=== PATIENT | male | born 1960 | race Caucasian/White ===

== ENCOUNTER 2018-10-01 10:42 | Emergency (ER) | payer MEDICARE, MEDICAID, SELFPAY ==
[2018-10-01 10:45] VITALS: BP 164/84; PULSE 91; RESP 20; TEMP 36.8; O2SAT 98
--- NOTE | 2018-10-01 10:52 | W.ED.GENAD ---
Discharge Plan Disposition Patient Disposition: HOME Condition: Good Discharge Details Chief Complaint: ThroatFB Clinical Impression: Mass of palate Primary Care Provider: None,None ED Provider: Surinder Borjas [facility] Prescriptions: Continued cyclobenzaprine 10 mg Tablet 10 mg PO DAILY RF: 0 tizanidine 4 mg Tablet 4 mg PO HS RF: 0 gabapentin 300 mg Capsule 600 mg PO BID RF: 0 omeprazole 20 mg Capsule,Delayed Release(Dr/Ec) 20 mg PO DAILY RF: 0 Discharge Instructions Additional Instructions: You will need to have this evaluated by ENT or by oral surgery. As you have a relationship with ENT, I would contact him first. Return to ED for inability to swallow, difficulty breathing, bleeding, other concerns. Referrals: Care Management [Provider Group] Naseem Higginbotham [ [facility] STAFF PHYSICIAN] - Medical Decision Making Patient needs referral to ENT or oral surgery for evaluation and at least biopsy if not removal of growth. Patient reports having a relationship with ENT in [place]. He will contact him for an appointment. Will have care management work with him in terms of establishing primary care here. Return to ED for inability to swallow, trouble breathing, bleeding. HPI General Mode of arrival: ambulatory. Date/Time Provider Initiated Documentation: 10/01/18 10:43. Limitations to Documentation: no limitations. Information obtained by: patient. HPI Narrative: Patient presents for evaluation of a growth on his upper palate. This has been there for over a month and is getting larger and is now painful at times. There has been no bleeding. He has no difficulty breathing or swallowing. He is new to this area in the last year or so and has not established primary care. He decided to come here. There is no acute changes. Related Data Home Medications Medication Instructions Recorded Confirmed cyclobenzaprine 10 mg PO DAILY 10/01/18 10/01/18 gabapentin 600 mg PO BID 10/01/18 10/01/18 omeprazole 20 mg PO DAILY 10/01/18 10/01/18 tizanidine 4 mg PO HS 10/01/18 10/01/18 Allergies Allergy/AdvReac Type Severity Reaction Status Date / Time No Known Allergies Allergy Unverified 10/01/18 10:48 General Stated Complaint: ThroatFB ARNALDO: 3 Review of Systems Constitutional Denies fever(s) ENT Denies facial pain, Reports mouth pain, Denies neck mass, Denies neck pain and Denies throat swelling Cardiovascular Denies dyspnea Respiratory Denies dyspnea Musculoskeletal Denies neck pain Allergic/Immunologic Denies throat swelling PFSH Medical History Hypertension (Chronic) Surgical History S/P partial thyroidectomy (Chronic) History of hernia repair (Inactive) Social History Smoking/Tobacco Use Status: Current every day Tobacco Type: cigars Alcohol Intake: former Substance use type: marijuana Do you feel safe at home: Yes Do you feel safe in your relationship?: Yes Exam Const General: cooperative, comfortable and no acute distress Orientation: alert and oriented x3 HENMT Head: normocephalic and atraumatic Face and sinus: normal facial exam Mouth: lip normal, tongue normal and other (0.5 cm soft tissue mass left hard/soft palate junction) Throat: posterior oropharynx normal and tonsils normal Course Vital Signs Temperature 98.2 F 10/01/18 10:45 Pulse 91 H 10/01/18 10:45 Respiratory Rate 20 10/01/18 10:45 Blood Pressure 164/84 H 10/01/18 10:45 Pulse Oximetry 98 10/01/18 10:45 Temperature 98.2 F 10/01/18 10:45 Temperature Source Temporal Artery Scan 10/01/18 10:45 Pulse 91 H 10/01/18 10:45 Respiratory Rate 20 10/01/18 10:45 Respiratory Effort Non-Labored 10/01/18 10:50 Respiratory Pattern Normal 10/01/18 10:50 Blood Pressure 164/84 H 10/01/18 10:45 Pulse Oximetry 98 10/01/18 10:45 Oxygen Delivery Method Room Air 10/01/18 10:45 Oxygen Flow Rate 0 10/01/18 10:45 Pain Level 7 10/01/18 10:45
[2018-10-01 15:53] VITALS: BP 164/84; PULSE 91; RESP 20; TEMP 36.8; O2SAT 98
--- NOTE | 2018-10-02 08:36 | CMPROGNOTE_ITS ---
Care Management Progress Note 10/02-Discussion for Rocky to establish a PCP. Rocky is already established with Jac Reyes at [facility]. This CM has reached out to Rocky and he has contact information if further assistance is needed.
== END 2018-10-01 11:24 | disposition home or self-care (01) ==
LOC: ER 11:32
PROVIDERS: Emergency Provider Emergency Medicine; PCP Internal Medicine
DX: R19.06 Epigastric swelling, mass or lump (principal); I10 Essential (primary) hypertension
CPT/HCPCS: 99282

== ENCOUNTER 2019-01-05 09:15 | Outpatient (REF) | payer MEDICARE, MEDICAID, SELFPAY ==
[2019-01-05 21:32] LABS: Abs Immature Grans 0.01 k/cumm (0.0-0.09); Absolute Basophil Count 0.02 k/cumm (0.0-0.2); Absolute Eosinophil Count 0.25 k/cumm (0.0-0.7); Absolute Lymphocyte Count 1.82 k/cumm (1.2-3.4); Absolute Monocyte Count 0.49 k/cumm (0.11-0.7); Absolute Neutrophil Count 5.08 k/cumm (1.2-6.7); Basophils % 0.3; Eosinophils % 3.3; HCT 44.1 % (40.0-50.0); HGB 14.7 g/dL (13.5-17.5); Immature Grans % 0.1; Lymphocytes % 23.7; Mean Corp. HGB Concentration 33.3 g/dL (32.0-36.0); Mean Corpuscular Hemoglobin 31.1 pg (27.0-33.0); Mean Corpuscular Volume 93.2 fL (80-95); Mean Platelet Volume 10.1 fL (8.0-11.0); Monocytes % 6.4; Neutrophils % 66.2; Platelet Count 268 x1000/uL (130-400); RBC 4.73 m/cumm (4.50-6.00); RBC Distribution Width 13.9 % (11.8-14.1); White Blood Cell Count 7.67 k/cumm (4.4-10.8)
[2019-01-05 23:57] LABS: ALT 20 U/L (12-78); AST 21 U/L (15-37); Alkaline Phosphatase 105 U/L (46-116); Anion Gap 9.7 mmol/L (3-11); BUN 9 mg/dL (7-18); Bilirubin, Total 0.4 mg/dL (0.2-1.0); CO2 28.3 mmol/L (21.0-32.0); CREATININE 0.96 mg/dL (0.70-1.30); Calcium 9.4 mg/dL (8.5-10.1); Calculated LDL 191 mg/dL; Chloride 106 mmol/L (98-107); Cholesterol 268 mg/dL (50-200); Glucose 87 mg/dL (70-100); HDL Cholesterol 43 mg/dL (40-60); Potassium 4.7 mmol/L (3.5-5.1); Sodium 144 mmol/L (136-145); TSH (W/Ref FT4) 1.91 uIU/mL (0.358-3.74); Total Protein 7.1 g/dL (6.4-8.2); Triglyceride 174 mg/dL (30-150)
[2019-01-08 06:50] LABS: Vitamin D 25 Total 28.7 ng/ml (30-100)
== END 2019-01-05 09:35 ==
LOC: NCHCN 09:15
PROVIDERS: PCP Internal Medicine; Visit Provider Family Medicine
DX: E55.9 Vitamin D deficiency, unspecified (principal); I10 Essential (primary) hypertension; E89.0 Postprocedural hypothyroidism; Z13.6 Encounter for screening for cardiovascular disorders
CPT/HCPCS: 80053; 80061; 82306; 83721; 84443; 85025

== ENCOUNTER 2019-03-11 09:21 | Outpatient (REF) | payer MEDICARE, MEDICAID, SELFPAY ==
[2019-03-11 22:46] LABS: ALT 23 U/L (16-63); AST 18 U/L (15-37); Albumin 3.7 g/dL (3.4-5.0); Alkaline Phosphatase 91 U/L (46-116); Anion Gap 10.9 mmol/L (3-11); BUN 14 mg/dL (7-18); Bilirubin, Direct 0.07 mg/dL (0.00-0.20); Bilirubin, Total 0.4 mg/dL (0.2-1.0); CO2 26.1 mmol/L (21.0-32.0); CREATININE 1.06 mg/dL (0.70-1.30); Chloride 105 mmol/L (98-107); Glucose 109 mg/dL (70-100); Potassium 4.3 mmol/L (3.5-5.1); Sodium 142 mmol/L (136-145); Total Protein 6.7 g/dL (6.4-8.2)
[2019-03-11 22:58] LABS: Calculated LDL 85 mg/dL; Cholesterol 150 mg/dL (50-200); HDL Cholesterol 52 mg/dL (40-60); Triglyceride 67 mg/dL (30-150)
[2019-03-12 05:03] LABS: Vitamin D 25 Total 35.4 ng/ml (30-100)
== END 2019-03-11 09:41 ==
LOC: NCHCN 09:21
PROVIDERS: PCP Internal Medicine; Visit Provider Family Medicine
DX: E83.51 Hypocalcemia (principal); I10 Essential (primary) hypertension; E78.70 Disorder of bile acid and cholesterol metabolism, unspecified; E55.9 Vitamin D deficiency, unspecified; L56.8 Other specified acute skin changes due to ultraviolet radiation; Z72.0 Tobacco use
CPT/HCPCS: 80048; 80061; 80076; 82306

== ENCOUNTER 2020-02-16 14:58 | Outpatient (REF) | payer MEDICARE, MEDICAID, SELFPAY ==
[2020-02-16 21:28] LABS: ALT 20 U/L (16-63); AST 11 U/L (15-37); Alkaline Phosphatase 84 U/L (46-116); BUN 11 mg/dL (7-18); Bilirubin, Total 0.4 mg/dL (0.2-1.0); CREATININE 1.03 mg/dL (0.70-1.30); Calcium 9.4 mg/dL (8.5-10.1); Calculated LDL 75 mg/dL (<100); Chloride 106 mmol/L (98-107); Cholesterol 151 mg/dL (<200); Glucose 104 mg/dL (74-106); HDL Cholesterol 59 mg/dL (40-60); Potassium 4.1 mmol/L (3.5-5.1); Sodium 139 mmol/L (136-145); TSH (W/Ref FT4) 1.02 uIU/mL (0.36-3.74); Total Protein 6.9 g/dL (6.4-8.2); Triglyceride 85 mg/dL (<150)
== END 2020-02-16 15:18 ==
LOC: NCHCN 14:58
PROVIDERS: PCP Internal Medicine; Visit Provider Family Medicine
DX: I10 Essential (primary) hypertension (principal); E55.9 Vitamin D deficiency, unspecified; E78.70 Disorder of bile acid and cholesterol metabolism, unspecified; Z72.0 Tobacco use
CPT/HCPCS: 80053; 80061; 82306; 84443

== ENCOUNTER 2020-05-18 00:21 | Outpatient (CLI) | payer MEDICARE, MEDICAID, SELFPAY ==
--- NOTE | 2020-05-18 09:18 | DI.CTLCSR_ITS ---
EXAM: CT CHEST LUNG CANCER SCREEN CLINICAL HISTORY: SCREENING FOR LUNG CA,CURRENT SMOKER, F17.210 TECHNIQUE: CT examination of the chest was performed utilizing low-dose lung cancer screening protoc ol. COMPARISON: No exams were available for comparison FINDINGS: Images obtained through the upper abdomen show unremarkable appearance of visualized portions of the liver and spleen. There is no mediastinal or hilar adenopathy. Mediastinal vascular structures appear intact by noncon trast criteria. Tracheobronchial tree appears intact. No pleural effusion or pleural-based mass. There is moderate central emphysema. There is tiny calcified left lower lobe intrapulmonary nodule. There is a 2 millimeter in right upper lobe noncalcified nodule seen posteriorly. No additional nod ule seen. No consolidation seen. IMPRESSION: Moderate centrilobular pulmonary emphysema noted. Tiny calcified and non calcified pulmonary nodules noted. Lung RADS Cat 2 - Benign Appearance / Behavior: Nodules with a very low likelihood of becoming a clin ically active cancer due to size or lack of growth Continue annual screening with LD CT in 12 months. RADIATION DOSE DELIVERED: LINK-TO-SR Total DLP 98.82mGy.cm Total DLP
== END 2020-05-18 00:41 ==
PROVIDERS: PCP Family Medicine; Visit Provider Family Medicine
DX: F17.210 Nicotine dependence, cigarettes, uncomplicated (principal); J43.2 Centrilobular emphysema; R91.8 Other nonspecific abnormal finding of lung field
CPT/HCPCS: G0297

== ENCOUNTER 2020-06-27 11:32 | Emergency (ER) | payer MEDICARE, MEDICAID, SELFPAY ==
[2020-06-27 11:42] VITALS: BP 154/77; PULSE 80; RESP 16; TEMP 36.7
--- NOTE | 2020-06-27 12:01 | W.ED.GENAD ---
Discharge Plan Disposition Patient Disposition: HOME Condition: Stable Discharge Details Clinical Impression: Abscess of back Primary Care Provider: Fracisco Blanton ED Provider: Yulisa Huber Home Meds and New Rx's Prescriptions: New clindamycin HCl 150 mg capsule 450 mg PO TID 7 Days Qty: 63 RF: 0 Continued atorvastatin 40 mg tablet 40 mg PO DAILY RF: 0 albuterol sulfate [Ventolin HFA] 90 mcg/actuation HFA aerosol inhaler 2 inh INHALATION Q4H PRN PRNRF: 0 cholecalciferol (vitamin D3) [Vitamin D3] 10 mcg (400 unit) tablet 800 unit PO HS RF: 0 hydrochlorothiazide 12.5 mg tablet 12.5 mg PO DAILY RF: 0 tizanidine 4 mg Tablet 4 mg PO HS RF: 0 gabapentin 300 mg Capsule 600 mg PO BID RF: 0 omeprazole 20 mg Capsule,Delayed Release(Dr/Ec) 20 mg PO DAILY RF: 0 Discharge Instructions Instructions: Abscess (ED) Additional Instructions: Take the antibiotics until finished. Alternate tylenol and motrin as needed and directed for pain. Keep wound clean and dry. Recover wound if dressing becomes wet or dirty. Do not remove packing within the wound. Return to the emergency department in 2 days for packing removal. Discharge Data Discharge Date/Time-TO BE ENTERED AT DEPARTURE: 06/27/20 13:22 Discharge Physician: Yulisa Huber Medical Decision Making 60-year-old male with a previous history of abscesses to his back presents for back abscess that started 1 month ago, now draining for the past 5 days. He has a 1.5 x 1.5 cm minimally fluctuant abscess noted just left of midline lower thoracic spine. Very minimal erythema but no red streaking. He appears nontoxic. Bedside ultrasound confirmed fluid collection. Area was cleaned with Betadine and anesthetized with lidocaine with epinephrine. Area incised with #11 blade and purulent drainage and cheeselike drainage expressed. Wound was irrigated and quarter inch iodoform packing placed. Patient was given a dose of clindamycin here as well as prescription to go. Advised to return to the ED in 2 days for packing removal and wound check. Medical Records Medical records reviewed: Yes I reviewed the patient's medical records. HPI General Mode of arrival: ambulatory. Date/Time Provider Initiated Documentation: 06/27/20 12:00. Limitations to Documentation: no limitations. Information obtained by: patient. HPI Narrative: Patient is a 60-year-old male who presents with a complaint of an abscess to his back for the last month, draining over the past 5 days with some improvement since then. Patient denies any fever. He states it opened a few days ago and has been draining white and bloody drainage. He states he has had an abscess in this area previously which has been treated with drainage and antibiotics. Related Data Home Medications Medication Instructions Recorded Confirmed gabapentin 600 mg PO BID 10/01/18 06/27/20 omeprazole 20 mg PO DAILY 10/01/18 06/27/20 tizanidine 4 mg PO HS 10/01/18 06/27/20 albuterol sulfate [Ventolin HFA] 2 inh INHALATION Q4H PRN PRN 06/27/20 06/27/20 atorvastatin 40 mg PO DAILY 06/27/20 06/27/20 cholecalciferol (vitamin D3) 800 unit PO HS 06/27/20 06/27/20 [Vitamin D3] clindamycin HCl 450 mg PO TID 7 Days #63 cap 06/27/20 hydrochlorothiazide 12.5 mg PO DAILY 06/27/20 06/27/20 Previous Rx's Medication Instructions Recorded clindamycin HCl 450 mg PO TID 7 Days #63 cap 06/27/20 Allergies Allergy/AdvReac Type Severity Reaction Status Date / Time No Known Allergies Allergy Unverified 06/27/20 11:50 General Stated Complaint: Cellulitis ARNALDO: 4 Review of Systems All systems reviewed & are unremarkable except as noted in HPI and below Constitutional Constitutional: Reports as per HPI, Denies chills and Denies fever(s) Eyes Eyes: Denies blurry vision ENT Ears, Nose, Mouth, and Throat: Denies dizziness, Denies sore throat and Denies throat swelling Cardiovascular Cardiovascular: Denies chest pain and Denies dyspnea Respiratory Respiratory: Denies cough and Denies dyspnea Gastrointestinal Gastrointestinal: Denies abdominal pain, Denies diarrhea and Denies vomiting Genitourinary Genitourinary: Denies hematuria and Denies dysuria Musculoskeletal Musculoskeletal: Denies back pain and Denies numbness Integumentary/Breasts Skin/Breast: Reports lesions and Denies rash Neurologic Neurologic: Denies dizziness, Denies localized weakness and Denies numbness Allergic/Immunologic Allergic/Immunologic: Denies throat swelling [facility] Medical History (Updated 06/27/20 @ 13:17 by Yulisa Huber DO) Hypertension Surgical History History of hernia repair S/P partial thyroidectomy Social History Smoking/Tobacco Use Status: Former Tobacco Use Smoking risk assessment performed?: Yes Alcohol Intake: former Drug use: Daily Substance use type: marijuana Do you feel safe at home: Yes Do you feel safe in your relationship?: Yes Exam Const General: cooperative, healthy appearing and no acute distress HENMT Head: normal to inspection Mouth: oral mucosae normal Eyes General: appearance normal, both eyes and all related structures Neck Neck: normal visual inspection Resp Effort & Inspection: normal respiratory effort and able to speak in complete sentences Cardio Rate: regular rate Back/Spine/Pelvis Back/spine/pelvis image: 1. 1.5 x 1.5 cm faintly erythematous and minimally raised abscess without significant fluctuance or induration. No red streaking. There is a crusted papule at 11:00 likely consistent with opening of abscess. Skin General skin exam: no rashes or lesions noted Neuro General: patient alert, patient awake and patient oriented x3 Motor: muscle tone normal throughout Extrem General: normal to inspection and full ROM Psych Appearance: grossly normal Affect: normal affect Course Vital Signs Vital signs: Vital Signs Temperature 98.1 F 06/27/20 11:42 Pulse 80 06/27/20 11:42 Respiratory Rate 16 06/27/20 11:42 Blood Pressure 154/77 H 06/27/20 11:42 Temperature 98.1 F 06/27/20 11:42 Temperature Source Temporal Artery Scan 06/27/20 11:42 Pulse 80 06/27/20 11:42 Respiratory Rate 16 06/27/20 11:42 Respiratory Effort Non-Labored 06/27/20 11:48 Blood Pressure 154/77 H 06/27/20 11:42 Blood Pressure Position Sitting 06/27/20 11:42 Oxygen Delivery Method Room Air 06/27/20 11:42 Oxygen Flow Rate 0 06/27/20 11:42 Pain Level 3 06/27/20 11:42 Procedures Abscess I/D Site: Back Side (if applicable): Left Local Anesthetic: Lidocaine 1% and With Epi Amount of anesthesia used (mL): 6 Technique: Incised with #11 Blade Amount of fluid expressed (mL): 3 Irrigation: Yes Packing used?: Iodoform
[2020-06-27] MEDS: Clindamycin 150 MG CAP 450 MG PO (13:15)
== END 2020-06-27 13:22 | disposition home or self-care (01) ==
PROVIDERS: Emergency Provider Physician Assistant; PCP Family Medicine
DX: L02.212 Cutaneous abscess of back [any part, except buttock and flank] (principal); I10 Essential (primary) hypertension
CPT/HCPCS: 10061

== ENCOUNTER 2020-06-29 13:45 | Emergency (ER) | payer MEDICARE, MEDICAID, SELFPAY ==
[2020-06-29 13:50] VITALS: PULSE 77; RESP 18; TEMP 36.7; O2SAT 96
--- NOTE | 2020-06-29 13:59 | ED.GENADUL_ITS ---
Discharge Plan Disposition Patient Disposition: HOME Condition: Stable Discharge Details Clinical Impression: Encounter for wound re-check Primary Care Provider: Fracisco Blanton ED Provider: Amber Peres Home Meds and New Rx's Prescriptions: Continued atorvastatin 40 mg tablet 40 mg PO DAILY RF: 0 albuterol sulfate [Ventolin HFA] 90 mcg/actuation HFA aerosol inhaler 2 inh INHALATION Q4H PRN PRNRF: 0 cholecalciferol (vitamin D3) [Vitamin D3] 10 mcg (400 unit) tablet 800 unit PO HS RF: 0 hydrochlorothiazide 12.5 mg tablet 12.5 mg PO DAILY RF: 0 clindamycin HCl 150 mg capsule 450 mg PO TID 7 Days Qty: 63 RF: 0 tizanidine 4 mg Tablet 4 mg PO HS RF: 0 gabapentin 300 mg Capsule 600 mg PO BID RF: 0 omeprazole 20 mg Capsule,Delayed Release(Dr/Ec) 20 mg PO DAILY RF: 0 Discharge Instructions Instructions: Abscess Incision and Drainage (DC) Additional Instructions: Continue taking previously prescribed antibiotic as instructed. Keep wound clean and dry. No soaking. May wash under running soap and water. Return to the ED for any worsening redness, fever or any concerns. Referrals: Fracisco Blanton [Primary Care Provider] - Medical Decision Making Patient here for a wound recheck. Packing removed as noted above. Instructed patient to continue taking the antibiotic as previously prescribed. HPI General Mode of arrival: ambulatory . Date/Time Provider Initiated Documentation: 06/29/20 13:53 . Limitations to Documentation: no limitations . Information obtained by: patient . HPI Narrative: 60-year-old male presents to the ED for abscess recheck. He had packing placed approximately 48 hours ago to a small abscess over his thoracic spine. He has been placed on clindamycin reports taking antibiotic as directed. He has no reported complications at home except for some mild tenderness when he leans onto his back. There is a abscess noted which has been I indeed with packing in place. No significant surrounding erythema or red streaks. Will remove packing. Related Data Home Medications Medication Instructions Recorded Confirmed gabapentin 600 mg PO BID 10/01/18 06/29/20 omeprazole 20 mg PO DAILY 10/01/18 06/29/20 tizanidine 4 mg PO HS 10/01/18 06/29/20 albuterol sulfate [Ventolin HFA] 2 inh INHALATION Q4H PRN PRN 06/27/20 06/29/20 atorvastatin 40 mg PO DAILY 06/27/20 06/29/20 cholecalciferol (vitamin D3) 800 unit PO HS 06/27/20 06/29/20 [Vitamin D3] clindamycin HCl 450 mg PO TID 7 Days #63 cap 06/27/20 06/29/20 hydrochlorothiazide 12.5 mg PO DAILY 06/27/20 06/29/20 Previous Rx's Medication Instructions Recorded clindamycin HCl 450 mg PO TID 7 Days #63 cap 06/27/20 Allergies Allergy/AdvReac Type Severity Reaction Status Date / Time No Known Allergies Allergy Unverified 06/29/20 13:54 General Stated Complaint: Recheck ARNALDO: 4 Review of Systems All systems reviewed & are unremarkable except as noted in HPI and below PFSH Medical History Hypertension Surgical History History of hernia repair S/P partial thyroidectomy Social History Smoking/Tobacco Use Status: Former Tobacco Use Smoking risk assessment performed?: Yes Alcohol Intake: former Drug use: Daily Substance use type: marijuana Do you feel safe at home: Yes Do you feel safe in your relationship?: Yes Exam Back/Spine/Pelvis Back/spine/pelvis image: 1. Previously I indeed abscess noted with packing in place. Approximately 4 inches of quarter inch packing removed. Patient tolerated well. Course Vital Signs Vital signs: Vital Signs Temperature 36.7 C 06/29/20 13:50 Pulse 77 06/29/20 13:50 Respiratory Rate 18 06/29/20 13:50 Pulse Oximetry 96 06/29/20 13:50 Temperature 36.7 C 06/29/20 13:50 Temperature Source Temporal Artery Scan 06/29/20 13:50 Pulse 77 06/29/20 13:50 Respiratory Rate 18 06/29/20 13:50 Blood Pressure Position Sitting 06/29/20 13:50 Pulse Oximetry 96 06/29/20 13:50 Oxygen Delivery Method Room Air 06/29/20 13:50 Oxygen Flow Rate 0 06/29/20 13:50
== END 2020-06-29 14:10 | disposition home or self-care (01) ==
PROVIDERS: Emergency Provider Registered Nurse Emergency; PCP Family Medicine
DX: L02.212 Cutaneous abscess of back [any part, except buttock and flank] (principal); Z48.01 Encounter for change or removal of surgical wound dressing; I10 Essential (primary) hypertension

== ENCOUNTER 2020-09-11 11:22 | Emergency (ER) | payer MEDICARE, MEDICAID, SELFPAY ==
[2020-09-11 11:30] VITALS: BP 167/102; PULSE 81; RESP 16; TEMP 36.4; O2SAT 100
--- NOTE | 2020-09-11 11:30 | DI.RAD_ITS ---
EXAM: XR KNEE LT 3V AP,LAT,GERARD CLINICAL HISTORY: pain post fall over patella. TECHNIQUE: 2D digital imaging was performed. COMPARISON: No exams were available for comparison FINDINGS: Three views of left knee reveal medial joint space narrowing and what appears to be a probable-possib le osteochondral defect in the medial femoral condyle articular surface and a very subtle loose intra -articular body in the intercondylar notch. Lateral compartment exhibits normal height. No osseous lesions. Fabella is noted posteriorly There is a joint effusion noted in the suprapatellar bursa. IMPRESSION: No obvious fracture but there is a osteochondral defect in the medial femoral condyle. Loose intra-a rticular body in the intercondylar notch noted which is possibly off of the medial femoral condyle OC D. There is also significant osteoarthritic narrowing of the medial compartment. Lateral compartmen t exhibits normal height. Joint effusion noted in the suprapatellar bursa. DATA REPOSITORY: RADIATION DOSE DELIVERED:
--- NOTE | 2020-09-11 11:46 | ED.GENADUL_ITS ---
Discharge Plan Disposition Patient Disposition: HOME Condition: Good Discharge Details Clinical Impression: Contusion of knee Primary Care Provider: Fracisco Blanton ED Provider: Camelia Griffin Home Meds and New Rx's Prescriptions: No Action atorvastatin 40 mg tablet 40 mg PO DAILY RF: 0 albuterol sulfate [Ventolin HFA] 90 mcg/actuation HFA aerosol inhaler 2 inh INHALATION Q4H PRN PRNRF: 0 cholecalciferol (vitamin D3) [Vitamin D3] 10 mcg (400 unit) tablet 800 unit PO HS RF: 0 hydrochlorothiazide 12.5 mg tablet 12.5 mg PO DAILY RF: 0 tizanidine 4 mg Tablet 4 mg PO HS RF: 0 gabapentin 300 mg Capsule 600 mg PO QID RF: 0 omeprazole 20 mg Capsule,Delayed Release(Dr/Ec) 20 mg PO DAILY RF: 0 Discharge Instructions Instructions: Contusion in Adults (ED) Additional Instructions: Repeat x-ray in 1 week with persistent pain Ibuprofen and Tylenol as needed for discomfort Return earlier should you have redness, swelling, discharge, worsening pain, strength or sensation changes [facility] Medical Decision Making Initially did not see evidence of fracture, however over read shows tibial plateau fracture with likely internal derangement of knee, I discussed the case with Dr. Ryan Carlson orthopedist on-call He reviewed imaging of knee and request knee immobilizer, patient was discharged with a knee brace and have the knee immobilizer at home which she will utilize He is aware that he should be nonweightbearing Orthopedic will see him next week, he was placed on the list He declined additional analgesia aside from ibuprofen and Tylenol He is ambulatory with antalgic gait on exam Neurovascularly intact throughout seizure Differential Diagnosis Differential Diagnosis: Fracture, strain, contusion, abrasion Medical Records Medical records reviewed: Yes I reviewed the patient's medical records. HPI This 60-year-old gentleman presents with report of left knee injury. He denies any additional injuries. The event occurred 5 hours prior to arrival. He tripped on a stair and landed directly on his knee. He has pain with flexion of the knee. He denies any additional complaints at this time. Strength and sensation are intact. Tetanus is up-to-date. Denies any dizziness or head injury. General Date/Time Provider Initiated Documentation: 09/11/20 11:23 . Related Data Home Medications Medication Instructions Recorded Confirmed gabapentin 600 mg PO QID 10/01/18 09/11/20 omeprazole 20 mg PO DAILY 10/01/18 09/11/20 tizanidine 4 mg PO HS 10/01/18 09/11/20 albuterol sulfate [Ventolin HFA] 2 inh INHALATION Q4H PRN PRN 06/27/20 09/11/20 atorvastatin 40 mg PO DAILY 06/27/20 09/11/20 cholecalciferol (vitamin D3) 800 unit PO HS 06/27/20 09/11/20 [Vitamin D3] hydrochlorothiazide 12.5 mg PO DAILY 06/27/20 09/11/20 Allergies Allergy/AdvReac Type Severity Reaction Status Date / Time No Known Allergies Allergy Unverified 09/11/20 11:34 General Stated Complaint: Orthopedic ARNALDO: 4 Review of Systems Narrative: Review of systems obtained x3 and negative aside from indication HPI PFSH Medical History Hypertension Surgical History History of hernia repair S/P partial thyroidectomy Social History Smoking/Tobacco Use Status: Current every day Tobacco Type: cigars Smoking risk assessment performed?: Yes Alcohol Intake: former Drug use: Daily Substance use type: marijuana Do you feel safe at home: Yes Do you feel safe in your relationship?: Yes Exam Const General: cooperative Orientation: oriented x3 HENMT Head: normal to inspection Extrem Other: Tenderness with palpation to left knee, small abrasion noted over patella, palpable effusion Course Vital Signs Vital signs: Vital Signs Temperature 36.4 C L 09/11/20 11:30 Pulse 81 09/11/20 11:30 Respiratory Rate 16 09/11/20 11:30 Blood Pressure 167/102 H 09/11/20 11:30 Pulse Oximetry 100 09/11/20 11:30 Temperature 36.4 C L 09/11/20 11:30 Temperature Source Skin 09/11/20 11:30 Pulse 81 09/11/20 11:30 Respiratory Rate 16 09/11/20 11:30 Respiratory Effort 09/11/20 11:34 Blood Pressure 167/102 H 09/11/20 11:30 Blood Pressure Position Sitting 09/11/20 11:30 Pulse Oximetry 100 09/11/20 11:30 Oxygen Delivery Method Room Air 09/11/20 11:30 Oxygen Flow Rate 0 09/11/20 11:30 Pain Level 7 09/11/20 11:30
--- NOTE | 2020-09-11 12:47 | DI.VRAD_ITS ---
PROCEDURE INFORMATION: Exam: XR Left Knee Exam date and time: 09/11/2020 11:36 AM Age: 60 years old Clinical indication: Other: Pain post fall over patella TECHNIQUE: Imaging protocol: XR Left knee. Views: 3 views. COMPARISON: No relevant prior studies available. FINDINGS: Bones/joints: There is moderate suprapatellar joint effusion. There is stranding of the infrapatellar Hoffa fat pad. There is severe narrowing of the medial compartment of the tibiofemoral joint with subchondral sclerosis and marginal osteophytes. There is an avulsion fracture of the lateral tibial plateau which is depressed . There is instability of the knee joint noted in the B??clere method intercondylar view with partial subluxation and overlap of medial plateau and medial femoral condyle . Additionally, there is suspicion of intra-articular loose bodies in the intercondylar notch in the intercondylar view. Soft tissues: There is mild prepatellar soft tissue swelling. IMPRESSION: 1. Depressed and avulsion fracture of the intra-articular medial tibial plateau. 2. Instability of knee joint of the medial tibiofemoral compartment with overlap of medial femoral condyle and medial tibial plateau. 3. Loose body in the intercondylar notch. 4. Severe osteoarthritis of the knee most pronounced in the medial tibiofemoral compartment. 5. Moderate suprapatellar joint effusion and diffuse soft tissue swelling. Dictated and Authenticated by: Jose E Babin MD. Ordering:ERVIN Denise MD
== END 2020-09-11 12:41 | disposition home or self-care (01) ==
PROVIDERS: Emergency Provider Physician Assistant; PCP Family Medicine
DX: S80.02XA Contusion of left knee, initial encounter (principal); W01.198A Fall on same level from slipping, tripping and stumbling with subsequent striking against other object, initial encounter
CPT/HCPCS: 73562; 99283; 99282

== ENCOUNTER 2021-06-20 16:50 | Outpatient (REF) | payer MEDICARE, MEDICAID, SELFPAY ==
[2021-06-20 21:42] LABS: ALT 22 U/L (16-63); AST 13 U/L (15-37); Albumin 4.3 g/dL (3.4-5.0); Alkaline Phosphatase 81 U/L (46-116); Anion Gap 6.1 mmol/L (3-11); BUN 13 mg/dL (7-18); Bilirubin, Total 0.4 mg/dL (0.2-1.0); CO2 32.9 mmol/L (21.0-32.0); CREATININE 1.1 mg/dL (0.70-1.30); Calcium 9.2 mg/dL (8.5-10.1); Chloride 102 mmol/L (98-107); Glucose 79 mg/dL (74-106); Potassium 3.9 mmol/L (3.5-5.1); Sodium 141 mmol/L (136-145); Total Protein 7.2 g/dL (6.4-8.2)
[2021-06-22 04:44] LABS: Vitamin D 25 Total 28.2 ng/mL (30-100)
[2021-06-22 10:24] LABS: Lyme Ab w Rflx to Lyme Confirm Negative (Negative)
[2021-06-24 00:16] LABS: Anaplasma phagocytophilum Negative (Negative); B. miyamotoi PCR Negative (Negative); Babesia divergens/MO-1 Negative (Negative); Babesia duncani Negative (Negative); Babesia microti Negative (Negative); Ehrlichia chaffeensis Negative (Negative); Ehrlichia ewingii/canis Negative (Negative); Ehrlichia muris eauclairensis Negative (Negative)
== END 2021-06-20 16:51 | disposition home or self-care (01) ==
LOC: NCHCN 16:50
PROVIDERS: PCP Family Medicine; Visit Provider Family Medicine
DX: E55.9 Vitamin D deficiency, unspecified (principal); I10 Essential (primary) hypertension; E78.70 Disorder of bile acid and cholesterol metabolism, unspecified; M25.59 Pain in other specified joint; Z00.00 Encounter for general adult medical examination without abnormal findings
CPT/HCPCS: 80053; 82306; 87798; 86618

== ENCOUNTER 2021-08-16 11:37 | Emergency (ER) | payer MEDICARE, MEDICAID, SELFPAY ==
[2021-08-16 11:58] VITALS: BP 127/71; PULSE 98; RESP 14; TEMP 36.4; O2SAT 94
--- NOTE | 2021-08-16 13:21 | ED.GENADUL_ITS ---
Discharge Plan Disposition Patient Disposition: HOME Condition: Stable Discharge Details Clinical Impression: Acute pain of right hip Primary Care Provider: Fracisco Blanton ED Provider: Camelia Griffin Home Meds and New Rx's Prescriptions: New prednisone 20 mg tablet 40 mg PO DAILY Qty: 10 0RF cyclobenzaprine 10 mg tablet 10 mg PO TID PRNQty: 10 0RF Continued atorvastatin 40 mg tablet 40 mg PO DAILY 0RF Label Comments: take 1 tablet by mouth at bedtime daily albuterol sulfate [Ventolin HFA] 90 mcg/actuation HFA aerosol inhaler 2 inh INHALATION Q4H PRN PRN0RF Label Comments: inhale 1 to 2 puffs by mouth once daily IF if needed wheezing cholecalciferol (vitamin D3) [Vitamin D3] 10 mcg (400 unit) tablet 800 unit PO HS 0RF Label Comments: TAKE 2 TABELTS BY MOUTH DAILY hydrochlorothiazide 12.5 mg tablet 12.5 mg PO DAILY 0RF Label Comments: take 1 tablet by mouth once daily tizanidine 4 mg Tablet 4 mg PO HS 0RF gabapentin 300 mg Capsule 600 mg PO QID 0RF omeprazole 20 mg Capsule,Delayed Release(Dr/Ec) 20 mg PO DAILY 0RF Discharge Instructions Additional Instructions: -Follow-up with your primary care physician in 2 to 3 days for reassessment Take the prednisone as prescribed, you may take Tylenol 650 mg every 4 hours in addition Take the Flexeril as needed for persistent pain, do not drive for 8 hours after taking this medication as it may make you very drowsy Light stretching as tolerated Heat or cold as improved pain Please return if strength or sensation change, changes in bowel or bladder, or with any new or worsening complaints Stand Alone Forms: Physical Therapy Referral Referrals: Fracisco Blanton [Primary Care Provider] - 3 days Discharge Data Discharge Date/Time-TO BE ENTERED AT DEPARTURE: 08/16/21 14:00 Medical Decision Making Patient appears well, no evidence of septic arthritis, clinically this does not appear to be a lumbar radiculopathy With radiation of pain from sciatic notch down right lower extremity, will treat patient as though he has sciatica with several doses of prednisone for pain control and a muscle relaxant He will continue on Tylenol I have given him a physical therapy referral Return precautions discussed and patient expressed understanding No clinical evidence of cauda equina syndrome, no IV drug abuse history, no clinical evidence of septic right hip Return precautions discussed and patient understanding Discharged home ambulatory with antalgic gait, steady Medical Records Medical records reviewed: Yes I reviewed the patient's medical records. HPI General Date/Time Provider Initiated Documentation: 08/16/21 12:40 . HPI Narrative: This very pleasant 61-year-old gentleman presents with report of right hip pain. Patient denies history of similar symptoms in the past. 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 He is wondering if he irritated the area. He denies any known trauma to the affected area. He states the pain is worse at night and when he first wakes up in the morning. He states ambulation uncomfortable and the pain radiates from his glutes down to the top of his knee. He denies any fever or chills. He denies history of IV drug abuse. He denies any paresthesias to e xtremity or weakness. He denies any groin numbness or tingling. He denies any IV or illicit drug use. Related Data Home Medications Medication Instructions Recorded Confirmed gabapentin 300 mg capsule 600 mg PO QID 10/01/18 08/16/21 omeprazole 20 mg capsule,delayed 20 mg PO DAILY 10/01/18 08/16/21 release tizanidine 4 mg tablet 4 mg PO HS 10/01/18 08/16/21 albuterol sulfate 90 mcg/actuation 2 inh INHALATION Q4H PRN PRN 06/27/20 08/16/21 aerosol inhaler (Ventolin HFA) atorvastatin 40 mg tablet 40 mg PO DAILY 06/27/20 08/16/21 cholecalciferol (vitamin D3) 10 800 unit PO HS 06/27/20 08/16/21 mcg (400 unit) tablet (Vitamin D3) hydrochlorothiazide 12.5 mg tablet 12.5 mg PO DAILY 06/27/20 08/16/21 cyclobenzaprine 10 mg tablet 10 mg PO TID PRN #10 tab 08/16/21 prednisone 20 mg tablet 40 mg PO DAILY #10 tab 08/16/21 Previous Rx's Medication Instructions Recorded cyclobenzaprine 10 mg tablet 10 mg PO TID PRN #10 tab 08/16/21 prednisone 20 mg tablet 40 mg PO DAILY #10 tab 08/16/21 Allergies Allergy/AdvReac Type Severity Reaction Status Date / Time No Known Allergies Allergy Unverified 08/16/21 12:03 General Stated Complaint: Orthopedic ARNALDO: 4 Review of Systems All systems reviewed & are unremarkable except as noted in HPI and below PFSH All Active Problems (Updated 08/16/21 @ 13:47 by KHOA Regalado) Acute pain of right hip (Acute) No-show for appointment (Acute) 09/26/2020 Contusion of knee (Acute) Medical History Hypertension Surgical History History of hernia repair S/P partial thyroidectomy Social History Smoking/Tobacco Use Status: Current every day Tobacco Type: cigars Smoking risk assessment performed?: Yes Alcohol Intake: former Drug use: Daily Substance use type: marijuana Do you feel safe at home: Yes Do you feel safe in your relationship?: Yes Exam Const General: cooperative, comfortable and no acute distress Orientation: alert and oriented x3 Cardio Rate: regular rate Rhythm: regular rhythm GI Other: no abdominal bruit or pulsatile mass no cva tenderness no abdominal tenderness Back/Spine/Pelvis Other: No midline tenderness Skin General skin exam: no rashes or lesions noted Neuro General: patient alert and patient oriented x3 Other: Sensation intact distally Negative straight leg raise, Babinski negative Strength and DTRs intact to bilateral lower extremities Extrem General: normal to inspection Upper/lower leg/hip images: 1. Tenderness with palpation 2. Other: DP and PT pulses intact bilateral lower extremities Course Vital Signs Vital signs: Vital Signs Temperature 36.4 C 08/16/21 11:58 Pulse 98 H 08/16/21 11:58 Respiratory Rate 14 08/16/21 11:58 Blood Pressure 127/71 08/16/21 11:58 Pulse Oximetry 94 08/16/21 11:58 Temperature 36.4 C 08/16/21 11:58 Pulse 98 H 08/16/21 11:58 Respiratory Rate 14 08/16/21 11:58 Respiratory Effort 08/16/21 12:04 Blood Pressure 127/71 08/16/21 11:58 Blood Pressure Position Supine 08/16/21 11:58 Pulse Oximetry 94 08/16/21 11:58 Oxygen Delivery Method Room Air 08/16/21 11:58 Oxygen Flow Rate 0 08/16/21 11:58 Pain Level 10 08/16/21 11:58
--- NOTE | 2021-08-16 13:32 | DI.RAD_ITS ---
Exam(s) XR HIP RT COMPLETE AP PELVIS EXAM: XR HIP RT COMPLETE AP PELVIS INDICATION: pain SI, hip. COMPARISON: No exams were available for comparison TECHNIQUE: 2D digital imaging was performed. FINDINGS: There is no evidence fracture or dislocation. There is mild acetabular spurring. There is minimal s purring from the margin of the femoral heads. The SI joints are unremarkable. There are severe dege nerative changes at L4-5 with prominent osteophytes toward the right side. IMPRESSION: Mild degenerative changes of the hips. Severe degenerative changes of the lower lumbar spine. DATA REPOSITORY: RADIATION DOSE DELIVERED:
[2021-08-16] MEDS: Ketorolac 15 MG/ML VIAL IM (13:45)
== END 2021-08-16 14:00 | disposition home or self-care (01) ==
PROVIDERS: Emergency Provider Physician Assistant; PCP Family Medicine
DX: M25.551 Pain in right hip (principal)
CPT/HCPCS: 96372; 99284; 73502; 99283; J1885

== ENCOUNTER 2022-11-09 16:21 | Outpatient (REF) | payer OTHER, MEDICAID, SELFPAY ==
[2022-11-12 12:55] LABS: Lyme Ab w Rflx to Lyme Confirm Negative (Negative)
[2022-11-14 15:14] LABS: Anaplasma phagocytophilum Negative (Negative); B. miyamotoi PCR Negative (Negative); Babesia divergens/MO-1 Negative (Negative); Babesia duncani Negative (Negative); Babesia microti Negative (Negative); Ehrlichia chaffeensis Negative (Negative); Ehrlichia ewingii/canis Negative (Negative); Ehrlichia muris eauclairensis Negative (Negative)
== END 2022-11-09 16:22 | disposition home or self-care (01) ==
LOC: LBN 16:21
PROVIDERS: PCP Family Medicine; Visit Provider Physician Assistant Medical
DX: Z11.8 Encounter for screening for other infectious and parasitic diseases (principal)
CPT/HCPCS: 87798; 86618